=== PATIENT | female | born 1965 | race Caucasian/White ===

== ENCOUNTER 2018-12-11 14:48 | Observation (INO) ==
--- NOTE | 2018-12-11 14:54 | Emergency Department Note ---
Disposition Clinical Impression: Chest pain Qualifiers: Chest pain type: other chest pain Qualified Code(s): R07.89 - Other chest pain Disposition: Admitted As Inpatient Condition: Fair Time of Disposition: 17:02 Chest Pain HPI - General Stated Complaint: Chest Pain Dizzy Time Seen by Provider: 12/11/18 14:54 Source: patient, family Mode of arrival: ambulatory Limitations: no limitations Vital Signs Reviewed: Yes Nursing Notes Reviewed: Yes - History of Present Illness HPI Narrative: 53-year-old female past medical history of hypertension, Arnold-Chiari ma lformation requiring 2 neurosurgical interventions presenting for one day history of sudden onset crushing chest pain midsternal radiating into her right upper extremity right jaw and going into the back. Patient stating that she is having lightheadedness, dizziness and headache along with the pain. Patient also experiencing nausea without vomiting numbness and paresthesias in the extremities. Patient states woke her from sleep in the middle the night, patient said the pain gradually receded but then about noon today increased in severity currently at 10 out of 10 on the pain scale. Pt complaint: chest pain Onset (ago): hour(s) Duration: gradually worsening Pain Location: substernal, left chest Severity: severe Severity scale (1-10): 10 Quality: sharp, other (Squeezing) Pain Radiation: RUE, jaw/teeth Associated symptoms: Reports: nausea, diaphoresis Treatments prior to arrival chest pain: none - Related Data Home Medications Medication Instructions Recorded Confirmed Furosemide [Lasix] 20 mg PO DAILY 10/08/15 12/11/18 Paroxetine [Paxil] 20 mg PO HS 10/08/15 12/11/18 Zolpidem [Ambien] 10 mg PO HS PRN 10/08/15 12/11/18 Budesonide/Formoterol 80/4.5 2 inh IH BID 06/28/18 12/11/18 [Symbicort 80/4.5] Ipratropium/Albuterol Neb [Duoneb] 2.5 mg IH DAILY PRN 06/28/18 12/11/18 Labetalol [Trandate] 100 mg PO BID 06/28/18 12/11/18 Quinapril HCl [Accupril] 20 mg PO DAILY 06/28/18 12/11/18 Thyroid,Pork [[place] Thyroid] 90 mg PO DAILY 06/28/18 12/11/18 Dicyclomine Hcl [Bentyl] 20 mg PO BID PRN 12/11/18 12/11/18 Erenumab-Aooe [Aimovig 120 mg SQ QMONTH 12/11/18 Autoinjector] Gabapentin 600 mg PO TID 12/11/18 12/11/18 Multivitamin [Daily Multiple 1 tab PO DAILY 12/11/18 12/11/18 Vitamin] Onabotulinumtoxina [Botox] Q3M 12/11/18 OxyCODONE/APAP 7.5/325 [Percocet 1 tab PO Q6HR PRN 12/11/18 12/11/18 7.5/325 MG] Promethazine [Phenergan] 25 mg RC TID PRN 12/11/18 12/11/18 Tizanidine HCl 2 mg PO Q8H PRN 12/11/18 12/11/18 carBAMazepine [Carbamazepine ER] 100 mg PO BID 12/11/18 12/11/18 Allergies Allergy/AdvReac Type Severity Reaction Status Date / Time ciprofloxacin [From Cipro] Allergy See Verified 12/11/18 19:17 Comments doxycycline Allergy Rash Verified 12/11/18 19:17 latex Allergy Anaphylaxis Verified 12/11/18 19:17 Penicillins Allergy Anaphylaxis Verified 12/11/18 19:17 sulfamethoxazole Allergy Headache Verified 12/11/18 19:17 [From Bactrim] trimethoprim [From Bactrim] Allergy Headache Verified 12/11/18 19:17 Review of Systems: See history of present illness for further detail. Constitutional: Denies: fever, chills Cardiovascular: Admits chest pain Respiratory: Admits dyspnea Gastrointestinal: Patient admitted to nausea. Denies: abdominal pain, vomiting, diarrhea, constipation, hematemesis, melena, hematochezia Genitourinary: Denies: hematuria Musculoskeletal: Admits back pain, neck pain Neurological: Patient complains of headache, weakness, numbness paresthesias. All systems ED: reviewed and negative except as stated. Review of Systems: As Per HPI Chest Pain PMH - Past Medical History Medical history: Reports: asthma, CVA, diabetes, GERD, hyperlipidemia, hypertension, migraine, other Surgical history: Reports: appendectomy, cholecystectomy, orthopedic, other, other Psychiatric history: Reports: depression MIXER WHIPPED TOPPING history: Reports: no MIXER WHIPPED TOPPING history - Social History Smoking Status: Never smoker Alcohol use: Reports: none Drug use: Reports: none Physical Exam Constitutional: Patient appears to be in distress due to pain. Otherwise [id number], engaged to conversation, speech is fluid, answers questions appropriately Neuro: GCS 15, no overt focal neurological deficits Head: Atraumatic, normocephalic Eyes: Pupils equal, round and reactive to light, no scleral icterus, no conjunctival injection Neck: Trachea midline without deviation. Anterior neck is supple without swelling. *Chest: Symmetric chest wall rise *Heart: Rate is tachycardic, Cardiac rhythm and is regular with S1 and S2 , no S3 or S4 appreciated, no murmurs, gallops, rubs, or clicks. *Lungs: Lungs are clear to auscultation bilaterally, without accessory muscle use or prolonged expiratory phase. No wheezes, rhonchi or stridor appreciated. Abdomen: Abdomen is flat, soft to palpation, normal bowel sounds. No abdominal bruit auscultated. Non-distended, non-rigid, no organomegaly, no ascites appreciated. No pulsatile mass, no tenderness or guarding to palpation in all four quadrants, no rebound Extremities: Normal capillary refill without evidence of pedal edema, joint swelling or erythema. Pulses/motor/sensory intact in all 4 extremities. Psychiatric exam: Patient displays a normal affect and mood for the environment. No overt signs of hallucination. Integumentary: Patient is diaphoretic. Skin is otherwise intact, normal color. No rash, cyanosis, diaphoresis, erythema, or pallor Course Course Narrative: Concern for aortic dissection CTA dissection study CBC, BMP, BNP, troponin, d-dimer EKG/old EKG Nitroglycerin and fentanyl for patient pain. - Reevaluation(s) Reevaluation #1: Patient continues to have pain despite nitroglycerin and fentanyl here to ED We will give patient 0.5 mg Dilaudid IV. Reevaluation #2: Patient notes significant management her symptoms prior to management of Dilaudid We will hold disorder at this time. Vital Signs Temperature 98.4 F 12/11/18 15:01 Pulse Rate 101 12/11/18 15:01 Respiratory Rate 22 12/11/18 15:01 Blood Pressure 161/102 12/11/18 15:01 O2 Sat by Pulse Oximetry 100 05/22/19 15:01 Temperature 98.4 F 12/11/18 15:01 Pulse Rate 98 12/11/18 15:44 Respiratory Rate 20 12/11/18 15:44 Blood Pressure 164/99 12/11/18 15:44 O2 Sat by Pulse Oximetry 96 12/11/18 15:44 Oxygen Delivery Oxygen Delivery Room Air Chest Pain - MDM Narrative Medical decision making narrative: Patient's EKG, laboratory and imaging results negative for acute pathology CT scan shows hilar lymphadenopathy which is new from prior study Lymphadenopathy was discussed at length patient as well as the necessity for close follow-up with primary care Patient be admitted to hospitalist medicine service for further evaluation and management of chest pain Patient verbalizes understanding and agreement with this plan. - Lab Data Lab results reviewed: Yes I reviewed the patient's lab results. Result diagrams: 12/12/18 02:18 12/12/18 02:18 Lab Results 12/11/18 12/11/18 12/11/18 Range/Units 15:16 15:16 15:16 WBC 5.8 (4.3-11.1) K/mcL RBC 4.14 (3.82-4.97) M/mcL Hgb 12.5 (11.5-15.4) g/dL Hct 36.3 (35.3-44.9) % MCV 87.7 (83.0-100.0) fL MCH 30.2 (28.0-33.3) pg MCHC 34.4 (31.6-35.5) g/dL RDW 12.8 (11.5-14.5) % Plt Count 282 (140-400) K/mcL MPV 10.4 (9.4-12.4) fL Immature Gran % 0.2 (0-4) % Seg Neutrophils % 47.5 % Lymphocytes % 38.9 % Monocytes % 11.2 % Eosinophils % 1.9 % Basophils % 0.3 % Neutrophils # 2.8 (1.6-8.9) K/mcL Lymphocytes # 2.3 (0.6-4.6) K/mcL Monocytes # 0.7 (0.0-1.3) K/mcL Eosinophils # 0.1 (0.0-0.6) K/mcL Basophils # 0.0 (0.0-0.2) K/mcL D-Dimer 489 (0-500) ng/mLFEU Sodium 142 (136-145) mEq/L Potassium 4.1 (3.5-5.1) mEq/L Chloride 105 (98-107) mEq/L Carbon Dioxide 25 (23-29) mEq/L BUN 13 (6-20) mg/dL Creatinine 0.67 (0.60-1.20) mg/dL Est GFR ( Amer) > 60 (> 60) Est GFR (Non-Af Amer) > 60 (> 60) BUN/Creatinine Ratio 19 (6-26) Glucose 112 H (70-105) mg/dL Calculated Osmolality 295 (280-300) Calcium 10.1 (8.6-10.3) mg/dL Troponin I < 0.03 (< 0.04) ng/mL - Radiology Data Radiology results reviewed: Yes I reviewed the patient's radiology results. CT Dissection 12/11/18 15:00 IMPRESSION: No evidence of aortic dissection. Mild mediastinal and hilar adenopathy which is new since the most recent available study February 2018. Follow-up is recommended with clinical consultation and/or PET-CT and/or three-month follow-up chest CT. Fatty infiltration of the liver. D/ / Gracie Arias Cha, MD / Gracie Arias Cha, MD Interpreting Provider: Gracie Arias Cha, MD - EKG Data EKG attestation: Yes I reviewed and interpreted this EKG. EKG results narrative: 1. Patient EKG shows sinus tachycardia with a rate of 101 bpm, NV interval of 137 ms, QRS duration of 80 ms, QT/QTc interval of 354/459 ms respectively. There are moderate ST segment elevations less than 1 mm noted in lead 1 and aVL with no reciprocal depressions noted, there are no significant ST segment depressions, pathologic Q waves, abnormal T-wave inversions, or any other signs of acute ischemic change. This EKG is generally consistent with prior EKG performed on 02/20/2018. 2. Repeat EKG shows sinus rhythm with a heart of 94 bpm, NV interval of 140 ms, QR synagogue of a 6 miles seconds, QT/QTc intervals 368/461 ms respectively. There are still minor less than [address] segment elevations in lead aVL and lead 1 which are isolated to the leads without significant ST segment reciprocal depressions. There are no pathologic Q waves, no abnormal T-wave inversions, or any other signs of acute ischemic change. EKG remains consistent with priors. Heart Score - Score History: Slightly Suspicious EKG: Normal Age: 45-65 Risk Factors: No risk factors known Troponin: Less than normal limit HEART Score Total: 1
[2018-12-11] MEDS ORDERED: Isovue-370 500 ML BOTTLE IVP ONE (15:00)
[2018-12-11] MEDS ORDERED: 0.9 % Sodium Chloride 1,000 ML IVC ONE (15:01)
[2018-12-11] MEDS ORDERED: *HR* FentaNYL (PF) 100 MCG/2 ML VIAL IVP STA (15:02)
[2018-12-11] MEDS: Nitroglycerin 0.4 MG TAB.SUBL SL SCH ×3 (15:28→15:50)
[2018-12-11 15:52] LABS: Basophils % 0.3 %; Eosinophils # 0.1 K/mcL (0.0-0.6); Eosinophils % 1.9 %; Hematocrit 36.3 % (35.3-44.9); Hemoglobin 12.5 g/dL (11.5-15.4); Immature Granulocytes % 0.2 % (0-4); Lymphocytes # 2.3 K/mcL (0.6-4.6); Lymphocytes % 38.9 %; Mean Corpuscular HGB Conc 34.4 g/dL (31.6-35.5); Mean Corpuscular Hemoglobin 30.2 pg (28.0-33.3); Mean Corpuscular Volume 87.7 fL (83.0-100.0); Mean Platelet Volume 10.4 fL (9.4-12.4); Monocytes # 0.7 K/mcL (0.0-1.3); Monocytes % 11.2 %; Neutrophils # 2.8 K/mcL (1.6-8.9); Platelet Count 282 K/mcL (140-400); Red Blood Count 4.14 M/mcL (3.82-4.97); Red Cell Distribution Width 12.8 % (11.5-14.5); Segmented Neutrophils % 47.5 %
--- NOTE | 2018-12-11 15:53 | Emergency Department Note ---
Disposition Clinical Impression: Chest pain Qualifiers: Chest pain type: other chest pain Qualified Code(s): R07.89 - Other chest pain Disposition: Admitted As Inpatient Condition: Fair Instructions: Chest Pain (ED) Referrals: NONE,PCP [Primary Care Provider] - Forms: ED Satisfaction Letter Time of Disposition: 17:04 General Adult HPI - General Chief complaint: ED Chest Pain Stated complaint: Chest Pain Dizzy Time Seen by Provider: 12/11/18 14:54 Source: patient, family Mode of arrival: ambulatory Limitations: no limitations - History of Present Illness Pain Scale: 10 - Related Data Home Medications Medication Instructions Recorded Confirmed Furosemide [Lasix] 20 mg PO DAILY 10/08/15 06/28/18 Gabapentin [Neurontin] 600 mg PO TID 10/08/15 06/28/18 HYDROmorphone [Dilaudid] 4 mg PO Q6HR 10/08/15 06/28/18 Multivitamin [Multi-Day Vitamins] 1 tab PO DAILY 10/08/15 06/28/18 Oxycodone HCl/Acetaminophen 7.5 - 325 tab PO Q4-6H PRN 10/08/15 06/28/18 [Percocet 7.5-325 mg Tablet] Paroxetine [Paxil] 20 mg PO DAILY 10/08/15 06/28/18 Promethazine [Phenergan] 25 mg TID PRN 10/08/15 06/28/18 Tizanidine HCl [Zanaflex] 2 mg PO Q8-10H PRN 10/08/15 06/28/18 Zolpidem [Ambien] 10 mg PO HS 10/08/15 06/28/18 Budesonide/Formoterol 80/4.5 2 inh IH BID 06/28/18 06/28/18 [Symbicort 80/4.5] CarBAMazepine [Equetro] 100 mg PO BID 06/28/18 06/28/18 Dicyclomine [Bentyl] 20 mg IM Q6HR 06/28/18 06/28/18 Ipratropium/Albuterol Neb [Duoneb] 2.5 mg IH DAILY PRN 06/28/18 06/28/18 Labetalol [Trandate] 100 mg PO BID 06/28/18 06/28/18 Quinapril HCl [Accupril] 20 mg PO DAILY 06/28/18 06/28/18 Thyroid,Pork [[place] Thyroid] 90 mg PO DAILY 06/28/18 06/28/18 Tizanidine HCl [Zanaflex] 2 mg PO Q8HR PRN 06/28/18 06/28/18 Allergies Allergy/AdvReac Type Severity Reaction Status Date / Time ciprofloxacin [From Cipro] Allergy See Verified 06/20/18 10:01 Comments doxycycline Allergy Rash Verified 06/20/18 10:01 latex Allergy Anaphylaxis Verified 06/20/18 10:01 Penicillins Allergy Anaphylaxis Verified 06/20/18 10:01 sulfamethoxazole Allergy Headache Verified 06/20/18 10:01 [From Bactrim] trimethoprim [From Bactrim] Allergy Headache Verified 06/20/18 10:01 Past Medical History - Past Medical History Medical history: Reports: asthma, CVA, diabetes, GERD, hyperlipidemia, hypertension, migraine, other Surgical history: Reports: appendectomy, cholecystectomy, orthopedic, other, other Psychiatric history: Reports: depression FAMILY LAW PARALEGAL history: Reports: no FAMILY LAW PARALEGAL history - Social History Smoking Status: Never smoker Smokeless Tobacco Status: No Alcohol use: Reports: none Drug use: Reports: none Physical Exam - General Limitations: no limitations General appearance: alert, in distress Course Vital Signs Temperature 98.4 F 12/11/18 15:01 Pulse Rate 101 12/11/18 15:01 Respiratory Rate 22 12/11/18 15:01 Blood Pressure 161/102 12/11/18 15:01 O2 Sat by Pulse Oximetry 100 12/11/18 15:01 Temperature 98.4 F 12/11/18 15:01 Pulse Rate 98 12/11/18 15:44 Respiratory Rate 20 12/11/18 15:44 Blood Pressure 164/99 12/11/18 15:44 O2 Sat by Pulse Oximetry 96 12/11/18 15:44 Oxygen Delivery Oxygen Delivery Room Air Medical Decision Making - Lab Data Result diagrams: 12/11/18 15:16 12/11/18 15:16 Lab Results 12/11/18 12/11/18 12/11/18 Range/Units 15:16 15:16 15:16 WBC 5.8 (4.3-11.1) K/mcL RBC 4.14 (3.82-4.97) M/mcL Hgb 12.5 (11.5-15.4) g/dL Hct 36.3 (35.3-44.9) % MCV 87.7 (83.0-100.0) fL MCH 30.2 (28.0-33.3) pg MCHC 34.4 (31.6-35.5) g/dL RDW 12.8 (11.5-14.5) % Plt Count 282 (140-400) K/mcL MPV 10.4 (9.4-12.4) fL Immature Gran % 0.2 (0-4) % Seg Neutrophils % 47.5 % Lymphocytes % 38.9 % Monocytes % 11.2 % Eosinophils % 1.9 % Basophils % 0.3 % Neutrophils # 2.8 (1.6-8.9) K/mcL Lymphocytes # 2.3 (0.6-4.6) K/mcL Monocytes # 0.7 (0.0-1.3) K/mcL Eosinophils # 0.1 (0.0-0.6) K/mcL Basophils # 0.0 (0.0-0.2) K/mcL D-Dimer 489 (0-500) ng/mLFEU Sodium 142 (136-145) mEq/L Potassium 4.1 (3.5-5.1) mEq/L Chloride 105 (98-107) mEq/L Carbon Dioxide 25 (23-29) mEq/L BUN 13 (6-20) mg/dL Creatinine 0.67 (0.60-1.20) mg/dL Est GFR ( Amer) > 60 (> 60) Est GFR (Non-Af Amer) > 60 (> 60) BUN/Creatinine Ratio 19 (6-26) Glucose 112 H (70-105) mg/dL Calculated Osmolality 295 (280-300) Calcium 10.1 (8.6-10.3) mg/dL Troponin I < 0.03 (< 0.04) ng/mL Critical Care Time Critical Care Time: No Attestation Statement - Attestation Attestation: I examined this patient and my medical decision-making was reviewed with the Resident Physician. I agree with the documented findings, disposition and treatment plan as described except to the extent set forth below. Patient presents to the ED with a chief complaint of chest pain. Onset this morning when I woke her up from sleep. Radiating to the right shoulder and her back. No cardiac history. On examination she is laying in bed clutching her chest. Appears uncomfortable. Plan. Cardiac workup. Dissection study. 2 E KGs been performed at this time and are unchanged. No signs of ischemia. CT was called and nursing staff is taking her at this time. CT scan is negative for dissection. Patient is admitted to the hospitalist for further chronic workup. We will discuss the adenopathy with the patient. CT Dissection 12/11/18 15:00 IMPRESSION: No evidence of aortic dissection. Mild mediastinal and hilar adenopathy which is new since the most recent available study February 2018. Follow-up is recommended with clinical consultation and/or PET-CT and/or three-month follow-up chest CT. Fatty infiltration of the liver. D/ / Gracie Arias Cha, MD / Gracie Arias Cha, MD Interpreting Provider: Gracie Arias Cha, MD
[2018-12-11 16:09] LABS: BUN/Creatinine Ratio 19 (6-26); Blood Urea Nitrogen 13 mg/dL (6-20); Calcium 10.1 mg/dL (8.6-10.3); Carbon Dioxide 25 mEq/L (23-29); Chloride 105 mEq/L (98-107); Glucose 112 mg/dL (70-105); Osmolality,Calculated 295 (280-300); Potassium 4.1 mEq/L (3.5-5.1); Sodium 142 mEq/L (136-145); eGFR For Non-African Americans > 60 (> 60)
[2018-12-11 16:10] LABS: Troponin I < 0.03 ng/mL (< 0.04)
[2018-12-11] MEDS ORDERED: *HR* HYDROmorphone (PF) 1 MG/ML SYRINGE IVP ONE (16:31)
[2018-12-11] MEDS ORDERED: Ondansetron 4 MG/2 ML VIAL IVP PRN (18:36)
[2018-12-11] MEDS ORDERED: Naloxone 0.4 MG/ML INJ IVP PRN (18:36)
[2018-12-11] MEDS ORDERED: Nitroglycerin 0.4 MG TAB.SUBL SL PRN (18:49)
--- NOTE | 2018-12-11 18:52 | Internal Med History&Physical ---
Date of Encounter: 12/11/18 Time of Encounter: 18:50 Internal Medicine - H&P: HPI Chief complaint: cp Admitted From: Home Plans for Post Hospital Care: Home History of present illness: Ms. Lehman is a 53 year old female past medical history of past medical history of asthma diet-controlled diabetes. Hyperlipidemia hypertension Arnold Chiari malformation with surgical intervention 2 chronic migraines incomplete emptying of bladder self-catheterization. According to the patient she was awakened approximately 3 to 4:00 this morning with sharp tight chest pressure radiating to her right neck and jaw there were no aggravating or relieving factors she did experience some shortness of breath and nausea. She felt as if her heart was pounding The pain did ease and a few hours later returned again at that time she did go to the ER for evaluation. In the ER lab work was unremarkable EKG with no significant ST changes CT dissection of chest was negative she was given nitroglycerin as well as a GI cocktail. GI cocktail did not relieve some of her pain. However now she has a headache. She was admitted for further work up and evaluation. Currently denies any chest pain but does complain of a headache. She is hemodynamically stable at this time however she is somewhat hypertensive. Discussed treatment plan with the patient verbalized understanding. Past Med Surg Social Fam HX - Past Medical History Medical history: asthma, CVA, diabetes, GERD, hyperlipidemia, hypertension, migraine, other Additional medical history: bronchitis,hypothyroid,urinary incontinence,diverticulosis,gallbladder disease,polyps in colon,ulcerative colitis,depression,hypoxemia,arnold-chairi malformation,visual field loss,gynecomastia female,impaired fasting glucose,obstructive sleep apnea,fungal infection, Psychiatric history: depression - Past Surgical History Surgical History: appendectomy, cholecystectomy, orthopedic, other, other Additional surgical history: brain surgery,tonsils,left knee,right knee,reflux surgery,right shoulder,heel spurs,spinal tap,breast reduction,colonoscopy,left knee scope-repair - Social History Smoking Status: Never smoker Smokeless Tobacco Status: No Alcohol use: none Drug use: none - Family History Father Living Status: Still Living Hx Family Cardiac Disorders: Yes (Coronary disease) Mother Living Status: Still Living Hx Family Cardiac Disorders: Yes (Hypertension) Internal Medicine - H&P: Meds Furosemide [Lasix] 20 mg PO DAILY 10/08/15 [History] Gabapentin [Neurontin] 600 mg PO TID 10/08/15 [History] HYDROmorphone [Dilaudid] 4 mg PO Q6HR 10/08/15 [History] Multivitamin [Multi-Day Vitamins] 1 tab PO DAILY 10/08/15 [History] Oxycodone HCl/Acetaminophen [Percocet 7.5-325 mg Tablet] 7.5 - 325 tab PO Q4-6H PRN 10/08/15 [History] Paroxetine [Paxil] 20 mg PO DAILY 10/08/15 [History] Promethazine [Phenergan] 25 mg TID PRN 10/08/15 [History] Tizanidine HCl [Zanaflex] 2 mg PO Q8-10H PRN 10/08/15 [History] Zolpidem [Ambien] 10 mg PO HS 10/08/15 [History] Budesonide/Formoterol 80/4.5 [Symbicort 80/4.5] 2 inh IH BID 06/28/18 [History] CarBAMazepine [Equetro] 100 mg PO BID 06/28/18 [History] Dicyclomine [Bentyl] 20 mg IM Q6HR 06/28/18 [History] Ipratropium/Albuterol Neb [Duoneb] 2.5 mg IH DAILY PRN 06/28/18 [History] Labetalol [Trandate] 100 mg PO BID 06/28/18 [History] Quinapril HCl [Accupril] 20 mg PO DAILY 06/28/18 [History] Thyroid,Pork [Doole Thyroid] 90 mg PO DAILY 06/28/18 [History] Tizanidine HCl [Zanaflex] 2 mg PO Q8HR PRN 06/28/18 [History] Allergy/AdvReac Type Severity Reaction Status Date / Time ciprofloxacin [From Cipro] Allergy See Verified 12/11/18 19:17 Comments doxycycline Allergy Rash Verified 12/11/18 19:17 latex Allergy Anaphylaxis Verified 12/11/18 19:17 Penicillins Allergy Anaphylaxis Verified 12/11/18 19:17 sulfamethoxazole Allergy Headache Verified 12/11/18 19:17 [From Bactrim] trimethoprim [From Bactrim] Allergy Headache Verified 12/11/18 19:17 All Systems PM: A 10-system review of systems was performed and is negative for pertinent findings except as documented above in the HPI. - Constitutional Constitutional: no chills, no fever(s), no night sweats - EENT Eyes: no change in vision, no discharge, no pain, no photophobia Ears: no ear discharge, no ear pain, no tinnitus Nose, mouth and throat: no dysphagia, no nasal discharge, no neck pain, no sore throat - Cardiovascular Cardiovascular ROS IM: palpitations, no chest pain, no diaphoresis, no dyspnea, no lightheadedness, no syncope - Respiratory Respiratory: chest congestion, no dyspnea, no wheezing, no excessive phlegm production - Gastrointestinal Gastrointestinal: no abdominal pain, no diarrhea, no hematemesis, no hematochezia, no melena, no nausea, no vomiting - Genitourinary Genitourinary: no change in urinary stream, no dysuria, no flank pain, no hematuria - Musculoskeletal Musculoskeletal ROS IM: no numbness, no tingling - Integumentary Integumentary IM: no rash, no unusual bruising - Neurological Neurological ROS: no confusion, no convulsions, no focal weakness, no numbness, no tingling, no tremor(s) - Hematologic/Lymphatic Hematologic/Lymphatic: no easy bruising - Constitutional Vitals: Temp Pulse Resp BP Pulse Ox 98.4 F 95 14 168/112 99 12/11/18 15:01 12/11/18 18:07 12/11/18 18:07 12/11/18 18:07 12/11/18 18:07 General appearance: Present: A&O X 3 Exam: . - Head Head exam: Present: atraumatic, normocephalic - Eye Eye exam: Present: PERRL, conjuntiva pink, sclera anicteric Pupils: Present: PERRL - Neck Neck exam general surgery: Present: supple, trachea midline. Absent: lymphadenopathy - Respiratory Respiratory exam: Present: CTAB. Absent: accessory muscle use, rales, rhonchi, wheezes - Cardiovascular Cardiovascular exam: Present: RRR, +S1, +S2. Absent: diastolic murmur, gallop, rubs, systolic murmur - GI/Abdominal GI/Abdominal exam: Present: normal bowel sounds, soft, no peritoneal signs. Absent: distended, tenderness - Extremities Exam Extremities exam: Present: warm, radial pulses palpable and symmetrical. Abs ent: calf tenderness, cyanotic, pedal edema - Neurological Exam Neurological exam: Present: CN II-XII intact, oriented X3, no focal deficits. Absent: pronater drift, facial droop, speech deficit - Skin Skin exam: Present: dry, intact Internal Med - H&P Results - Labs CBC & Chem 7: 12/11/18 15:16 12/11/18 15:16 Labs: Short CBC 12/11/18 Range/Units 15:16 WBC 5.8 (4.3-11.1) K/mcL Hgb 12.5 (11.5-15.4) g/dL Hct 36.3 (35.3-44.9) % Plt Count 282 (140-400) K/mcL Neutrophils # 2.8 (1.6-8.9) K/mcL BMP 12/11/18 15:16 Sodium 142 Potassium 4.1 Chloride 105 Carbon Dioxide 25 BUN 13 Creatinine 0.67 Glucose 112 H Calcium 10.1 Cardiac Enzymes 12/11/18 Range/Units 15:16 Troponin I < 0.03 (< 0.04) ng/mL - Impressions ITS Impressions CT Dissection 12/11/18 15:00 IMPRESSION: No evidence of aortic dissection. Mild mediastinal and hilar adenopathy which is new since the most recent available study February 2018. Follow-up is recommended with clinical consultation and/or PET-CT and/or three-month follow-up chest CT. Fatty infiltration of the liver. D/ / Gracie Arias Cha, MD / Gracie Arias Cha, MD Interpreting Provider: Gracie Arias Cha, MD - Assessment and Plan (1) Chest pain Current Visit: Yes Status: Acute Assessment and plan: Patient presented with sudden onset of chest pain initial troponins are negative we will continue to trend troponins Cardiac echo Continuous cardiac monitoring Lipid profile Atorvastatin aspirin and beta elba lisinopril Nitroglycerin as needed for chest pain Cardiac stress test in a.m. if workup is negative Nothing by mouth after midnight for possible cardiac stress test Consult cardiology if needed Qualifiers: Chest pain type: other chest pain Qualified Code(s): R07.89 - Other chest pain; R07.8 - Other chest pain (2) DVT prophylaxis Current Visit: Yes Status: Acute Assessment and plan: Lovenox subcutaneous (3) Arnold-chiari syndrome with hydrocephalus Current Visit: No Status: Chronic Assessment and plan: Stable at this time follow-up as outpatient with neurology (4) Hyperlipemia Current Visit: No Status: Chronic Assessment and plan: Lipid profile in a.m. atorvastatin Qualifiers: Hyperlipidemia type: unspecified Qualified Code(s): E78.5 - Hyperlipidemia, unspecified (5) Hypertension Current Visit: Yes Status: Acute Assessment and plan: Patient has had elevated blood pressure states she has been taking her medication as prescribed. We will place on metoprolol as well as lisinopril hydralazine as needed for systolic greater than 180. Will resume home medications once clarified. Qualifiers: Hypertension type: essential hypertension Qualified Code(s): I10 - Essential (primary) hypertension - Time Spent With Patient Total time spent is greater than 50% in coordination of care (as documented) at patient's floor/unit and/or counseling patient:
[2018-12-12] MEDS: *HR* OxyCODONE/APAP 7.5/325 TABLET PO PRN ×3 (00:21→22:47)
[2018-12-12 02:38] LABS: Basophils % 0.3 %; Eosinophils # 0.2 K/mcL (0.0-0.6); Eosinophils % 3.3 %; Hematocrit 33.8 % (35.3-44.9); Hemoglobin 11.4 g/dL (11.5-15.4); Immature Granulocytes % 0.2 % (0-4); Lymphocytes # 2.9 K/mcL (0.6-4.6); Lymphocytes % 43.1 %; Mean Corpuscular HGB Conc 33.7 g/dL (31.6-35.5); Mean Corpuscular Hemoglobin 30.5 pg (28.0-33.3); Mean Corpuscular Volume 90.4 fL (83.0-100.0); Mean Platelet Volume 10.2 fL (9.4-12.4); Monocytes # 0.7 K/mcL (0.0-1.3); Monocytes % 9.8 %; Neutrophils # 2.9 K/mcL (1.6-8.9); Platelet Count 243 K/mcL (140-400); Red Blood Count 3.74 M/mcL (3.82-4.97); Red Cell Distribution Width 13.1 % (11.5-14.5); Segmented Neutrophils % 43.3 %
[2018-12-12 02:40] LABS: Estimated Average Glucose 134 mg/dl; Hemoglobin A1C 6.3 %
[2018-12-12 02:58] LABS: BUN/Creatinine Ratio 21 (6-26); Blood Urea Nitrogen 13 mg/dL (6-20); Calcium 9.2 mg/dL (8.6-10.3); Carbon Dioxide 25 mEq/L (23-29); Chloride 106 mEq/L (98-107); Chol/HDL Ratio 5.4 (0-4.9); Cholesterol 188 mg/dL (< 200); Glucose 121 mg/dL (70-105); HDL Cholesterol 35 mg/dL (40-59); LDL Cholesterol,Calculated 103 mg/dL (0-99); Magnesium 1.8 mg/dL (1.6-2.6); Osmolality,Calculated 287 (280-300); Sodium 138 mEq/L (136-145); Triglycerides 250 mg/dL (< 150); eGFR For Non-African Americans > 60 (> 60)
[2018-12-12] MEDS ORDERED: Metoclopramide 10 MG/2 ML VIAL IVP STA (04:55)
[2018-12-12] MEDS: *HR* Enoxaparin 40 MG/0.4 ML SYRINGE SQ SCH (05:26)
[2018-12-12] MEDS ORDERED: Regadenoson 0.4 MG/5 ML SYRINGE IVP ONE (06:20)
[2018-12-12] MEDS: Aspirin 81 MG TAB.CHEW PO SCH (08:44)
--- NOTE | 2018-12-12 09:47 | Electrocardiograph Report ---
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
[2018-12-12] MEDS ORDERED: Perflutren Lipid Microsphere 1.3 ML in 0.9 % Sodium Chloride 8.7 ML IVP ONE (10:34)
[2018-12-12] MEDS ORDERED: tiZANidine 4 MG TABLET PO PRN (15:54)
--- NOTE | 2018-12-12 15:54 | Internal Med Progress Note ---
Hospitalist Progress Note - Encounter Date of Encounter: 12/12/18 Time of Encounter: 15:51 - Subjective Interval History: Patient was seen and examined at bedside currently completed second-half of 2 day stress test. Denies any chest pain or discomfort at this time - Exam Vitals: Temp Pulse Resp BP Pulse Ox 98.4 F 82 16 172/113 98 12/12/18 15:45 12/12/18 15:45 12/12/18 15:45 12/12/18 15:45 12/12/18 15:45 Exam: Skin: Free of rash and discoloration. Eyes: Sclera is white. There is no discharge from eyes. ENMT: Oral/pharyngeal mucosa is normal in appearance. There is no discharge from nose or ears. Respiratory: Normal breath sounds with no crackles and wheezes bilaterally. CV: Heart is regular with no gallop or murmur. GI: Abdomen is flat and soft with no palpable mass or visceromegaly. : There is no tenderness in patient's flanks bilaterally. Neuro exam: He has good strength in upper and lower extremities. He has normal eye movements. Psychiatric: He has normal affect. His thought process is appropriate to the situation. - Assessment and Plan (1) Chest pain Current Visit: Yes Status: Acute Assessment and Plan: Patient presented with sudden onset of chest pain initial troponins are negative Completed first day of 2 day stress test- Continuous cardiac monitoring Lipid profile Atorvastatin aspirin and beta elba lisinopril Nitroglycerin as needed for chest pain Nothing by mouth after midnight for possible cardiac stress test Consult cardiology if needed Cardiac echo Impressions: LVEF 65%. Normal LV chamber size. Mild concentric left ventricular hypertrophy. Mild left ventricular diastolic dysfunction. The right ventricle was not well visualized but appeared grossly normal in size and function Unable to estimate RVSP due to lack of TR jet. No significant valvular dysfunction. (2) DVT prophylaxis Current Visit: Yes Status: Acute Assessment and Plan: Lovenox subcutaneous (3) Arnold-chiari syndrome with hydrocephalus Current Visit: No Status: Chronic Assessment and Plan: Stable at this time follow-up as outpatient with neurology (4) Hyperlipemia Current Visit: No Status: Chronic Assessment and Plan: Lipid profile in a.m. atorvastatin (5) Hypertension Current Visit: Yes Status: Acute Assessment and Plan: Patient has had elevated blood pressure states she has been taking her medicat ion as prescribed. We will place on metoprolol as well as lisinopril hydralazine as needed for systolic greater than 180. Will resume home medications once clarified. - Time Spent with Patient Total time spent is greater than 50% in coordination of care (as documented) at patient's floor/unit and/or counseling patient: Internal Medicine: Result - Labs CBC & Chem 7: 12/12/18 02:18 12/12/18 02:18 Labs: Short CBC 12/11/18 12/12/18 Range/Units 15:16 02:18 WBC 5.8 6.6 (4.3-11.1) K/mcL Hgb 12.5 11.4 L (11.5-15.4) g/dL Hct 36.3 33.8 L (35.3-44.9) % Plt Count 282 243 (140-400) K/mcL Neutrophils # 2.8 2.9 (1.6-8.9) K/mcL BMP 12/11/18 12/12/18 15:16 02:18 Sodium 142 138 Potassium 4.1 4.0 Chloride 105 106 Carbon Dioxide 25 25 BUN 13 13 Creatinine 0.67 0.62 Glucose 112 H 121 H Calcium 10.1 9.2 Cardiac Enzymes 12/11/18 12/11/18 12/12/18 Range/Units 15:16 20:30 02:18 Troponin I < 0.03 < 0.03 < 0.03 (< 0.04) ng/mL - ABG Interpretation ABG results: PT/INR, D-dimer 489 ng/mLFEU (0-500) 12/11/18 15:16 - Impressions Impressions CT Dissection 12/11/18 15:00 IMPRESSION: No evidence of aortic dissection. Mild mediastinal and hilar adenopathy which is new since the most recent available study February 2018. Follow-up is recommended with clinical consultation and/or PET-CT and/or three-month follow-up chest CT. Fatty infiltration of the liver. D/ / Gracie Arias Cha, MD / Gracie Arias Cha, MD Interpreting Provider: Gracie Arias Cha, MD Echocardiogram 12/12/18 18:39 Impressions: LVEF 65%. Normal LV chamber size. Mild concentric left ventricular hypertrophy. Mild left ventricular diastolic dysfunction. The right ventricle was not well visualized but appeared grossly normal in size and function Unable to estimate RVSP due to lack of TR jet. No significant valvular dysfunction. Left Ventricular Wall Motion: Rest Echo Findings All wall segments showed normal motion. Findings: Study Quality * Technically sub-optimal due to poor echocardiographic windows. ECG Findings * Normal sinus rhythm. Left Ventricle * LVEF 65%. * Normal LV chamber size. * Mild concentric left ventricular hypertrophy. * Mild left ventricular diastolic dysfunction. Right Ventricle * The right ventricle was not well visualized but appeared grossly normal in size and function Left Atrium * Normal left atrial size. Right Atrium * Normal right atrial size. Interatrial Septum * Interatrial septum not well evaluated. Aortic Valve * Aortic valve not well visualized. * No aortic regurgitation. * No aortic stenosis. Mitral Valve * Mild mitral annular calcification * Trace mitral regurgitation. * No mitral stenosis. Tricuspid Valve * Trace tricuspid regurgitation. * No tricuspid stenosis. * Normal tricuspid valve structure. * Unable to estimate RVSP due to lack of TR jet. Pulmonic Valve * Pulmonic valve not well visualized. Aorta * Normally sized aortic root. Pericardium * The pericardium appears normal. IVC * Normal IVC dimensions and inspiratory collapse. Pulmonary Artery * Pulmonary artery not well visualized. Consult Discharge Plan - Plan Referrals: Hipolito Zapien MD [Partnered Physician] - (Appointment has been requested.) (1) Chest pain Qualifiers: Chest pain type: other chest pain Qualified Code(s): R07.89 - Other chest pain; R07.8 - Other chest pain (4) Hyperlipemia Qualifiers: Hyperlipidemia type: unspecified Qualified Code(s): E78.5 - Hyperlipidemia, unspecified (5) Hypertension Qualifiers: Hypertension type: essential hypertension Qualified Code(s): I10 - Essential (primary) hypertension
[2018-12-12] MEDS: Lisinopril 20 MG TABLET PO SCH (16:46)
[2018-12-12] MEDS: Furosemide 20 MG TABLET PO SCH (16:46)
[2018-12-12] MEDS: Gabapentin 300 MG CAPSULE PO SCH (20:07)
[2018-12-12] MEDS: CarBAMazepine XR (12 hr) 100 MG TAB PO SCH (20:08)
[2018-12-12] MEDS: Budesonide/Formoterol 80/4.5 MDI IH SCH (20:13)
[2018-12-12] MEDS ORDERED: Loratadine 10 MG TABLET PO ONE (20:17)
[2018-12-13] MEDS: *HR* OxyCODONE/APAP 7.5/325 TABLET PO PRN ×2 (05:25→12:09)
[2018-12-13] MEDS: *HR* Enoxaparin 40 MG/0.4 ML SYRINGE SQ SCH (06:02)
[2018-12-13] MEDS: Budesonide/Formoterol 80/4.5 MDI IH SCH (07:44)
[2018-12-13] MEDS ORDERED: NON-FORMULARY MEDICATION 1 EACH EACH (Quinapril Hcl [Accupril] 20 MG) PO SCH (09:00)
[2018-12-13] MEDS ORDERED: Multivit/Ca/Min/Fe/FA 1 TAB TABLET PO SCH (09:00)
[2018-12-13] MEDS ORDERED: Furosemide 20 MG TABLET PO SCH (09:00)
--- NOTE | 2018-12-13 10:25 | Internal Med Progress Note ---
Hospitalist Progress Note - Encounter Date of Encounter: 12/13/18 Time of Encounter: 10:02 - Subjective Interval History: Patient was seen and examined at bedside Updated patient on - Exam Vitals: Temp Pulse Resp BP Pulse Ox 98.2 F 87 16 128/81 92 12/13/18 07:12 12/13/18 07:12 12/13/18 07:45 12/13/18 07:12 12/13/18 07:45 - Assessment and Plan (1) Chest pain Current Visit: Yes Status: Acute (2) DVT prophylaxis Current Visit: Yes Status: Acute (3) Arnold-chiari syndrome with hydrocephalus Current Visit: No Status: Chronic (4) Hyperlipemia Current Visit: No Status: Chronic (5) Hypertension Current Visit: Yes Status: Acute - Time Spent with Patient Total time spent is greater than 50% in coordination of care (as documented) at patient's floor/unit and/or counseling patient: Internal Medicine: Result - Labs CBC & Chem 7: 12/12/18 02:18 12/12/18 02:18 - ABG Interpretation ABG results: PT/INR, D-dimer 489 ng/mLFEU (0-500) 12/11/18 15:16 - Impressions Impressions Echocardiogram 12/12/18 18:39 Impressions: LVEF 65%. Normal LV chamber size. Mild concentric left ventricular hypertrophy. Mild left ventricular diastolic dysfunction. The right ventricle was not well visualized but appeared grossly normal in size and function Unable to estimate RVSP due to lack of TR jet. No significant valvular dysfunction. Left Ventricular Wall Motion: Rest Echo Findings All wall segments showed normal motion. Findings: Study Quality * Technically sub-optimal due to poor echocardiographic windows. ECG Findings * Normal sinus rhythm. Left Ventricle * LVEF 65%. * Normal LV chamber size. * Mild concentric left ventricular hypertrophy. * Mild left ventricular diastolic dysfunction. Right Ventricle * The right ventricle was not well visualized but appeared grossly normal in size and function Left Atrium * Normal left atrial size. Right Atrium * Normal right atrial size. Interatrial Septum * Interatrial septum not well evaluated. Aortic Valve * Aortic valve not well visualized. * No aortic regurgitation. * No aortic stenosis. Mitral Valve * Mild mitral annular calcification * Trace mitral regurgitation. * No mitral stenosis. Tricuspid Valve * Trace tricuspid regurgitation. * No tricuspid stenosis. * Normal tricuspid valve structure. * Unable to estimate RVSP due to lack of TR jet. Pulmonic Valve * Pulmonic valve not well visualized. Aorta * Normally sized aortic root. Pericardium * The pericardium appears normal. IVC * Normal IVC dimensions and inspiratory collapse. Pulmonary Artery * Pulmonary artery not well visualized. Consult Discharge Plan - Plan Referrals: Hipolito Zapien MD [Partnered Physician] - (Appointment has been requested.) (1) Chest pain Qualifiers: Chest pain type: other chest pain Qualified Code(s): R07.89 - Other chest pain; R07.8 - Other chest pain (4) Hyperlipemia Qualifiers: Hyperlipidemia type: unspecified Qualified Code(s): E78.5 - Hyperlipidemia, unspecified (5) Hypertension Qualifiers: Hypertension type: essential hypertension Qualified Code(s): I10 - Essential (primary) hypertension
--- NOTE | 2018-12-13 10:51 | Electrocardiograph Report ---
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
[2018-12-13] MEDS: Gabapentin 300 MG CAPSULE PO SCH ×2 (10:53→16:29)
[2018-12-13] MEDS: Lisinopril 20 MG TABLET PO SCH (10:53)
[2018-12-13] MEDS: Furosemide 20 MG TABLET PO SCH (10:53)
[2018-12-13] MEDS: Aspirin 81 MG TAB.CHEW PO SCH (10:53)
[2018-12-13] MEDS: CarBAMazepine XR (12 hr) 100 MG TAB PO SCH (10:54)
--- NOTE | 2018-12-13 14:29 | Cardiology Consult Note ---
<Judy Bartholomew Aston - Last Filed: 12/13/18 14:30> Date of Encounter: 12/13/18 Time of Encounter: 14:00 Assessment and Plan (1) Chest pain Current Visit: Yes Status: Acute Atypical chest pain symptoms, troponin negative. ECG without ischemic changes. Cardiology consulted for abnormal stress test--mild anterolateral perfusion defect. Reviewed images with Dr. Fernandez; may be secondary to breast attenuation. Recommend medical therapy for now as symptoms seem to correlate with uncontrolled blood pressures. Add aspirin, statin, and BB. Follow-up in the outpatient setting in 4-6 weeks with [facility], if continues to have symptoms may need to consider LHC. Qualifiers: Chest pain type: precordial pain Qualified Code(s): R07.2 - Precordial pain (2) Essential hypertension Current Visit: Yes Status: Acute Suspect poorly controlled in the outpatient setting. Add BB. Discussion w patient/family: The assessment and plan as outlined above was discussed with the patient and/or family members who expressed understanding and agreement. All questions were answered. Thank you for involving us in the care of your patient. Please call with any questions. History of Present Illness Consult date: 12/13/18 Requesting physician: Arelis Deleon Consult reason: Abnormal stress test Chief complaint: chest pain History of present illness: Ms. Lehman is a 53 year old female with PMHx significant of HTN, HLD, and obesity who presented to the ED with complaints of sudden onset of chest pain that occurred at rest. Chest pain described as stabbing/squeezing pain that radiated to back and into neck, states pain lasted for several hours and re solved after administration of NTG tabs in the ED. During episode, patient reports SBP >190 during episode. Troponin negative, ECG without ischemic changes. Cardiology consulted today for abnormal stress test. Past Med Surg Social Fam HX - Past Medical History Attestation: Yes The following information was validated with the patient. Source: patient Medical history: asthma, diabetes, GERD, hyperlipidemia, hypertension, migraine, thyroid disease, other Additional medical history: diverticululosis, ulcerative colitis, arnold-chairi malformation, obstructive sleep apnea Psychiatric history: depression - Past Surgical History Surgical History: appendectomy, cholecystectomy, orthopedic, other Additional surgical history: brain surgery x2 ,tonsils removed, reflux surgery, breast reduction - Social History Smoking Status: Never smoker Smokeless Tobacco Status: No Alcohol use: none Drug use: none - Family History Father Living Status: Still Living Hx Family Cardiac Disorders: Yes (unsure of diagnosis) Mother Living Status: Still Living Hx Family Cardiac Disorders: Yes (Hypertension) Medications and Allergies Furosemide [Lasix] 20 mg PO DAILY 10/08/15 [History] Paroxetine [Paxil] 20 mg PO HS 10/08/15 [History] Zolpidem [Ambien] 10 mg PO HS PRN 10/08/15 [History] Budesonide/Formoterol 80/4.5 [Symbicort 80/4.5] 2 inh IH BID 06/28/18 [History] Ipratropium/Albuterol Neb [Duoneb] 2.5 mg IH DAILY PRN 06/28/18 [History] Labetalol [Trandate] 100 mg PO BID 06/28/18 [History] Quinapril HCl [Accupril] 20 mg PO DAILY 06/28/18 [History] Thyroid,Pork [[place] Thyroid] 90 mg PO DAILY 06/28/18 [History] Dicyclomine Hcl [Bentyl] 20 mg PO BID PRN 12/11/18 [History] Erenumab-Aooe [Aimovig Autoinjector] 120 mg SQ QMONTH 12/11/18 [History] Gabapentin 600 mg PO TID 12/11/18 [History] Multivitamin [Daily Multiple Vitamin] 1 tab PO DAILY 12/11/18 [History] Onabotulinumtoxina [Botox] 0 ml SQ [id number] 12/11/18 [History] OxyCODONE/APAP 7.5/325 [Percocet 7.5/325 MG] 1 tab PO Q6HR PRN 12/11/18 [History] Promethazine [Phenergan] 25 mg RC TID PRN 12/11/18 [History] Tizanidine HCl 2 mg PO Q8H PRN 12/11/18 [History] carBAMazepine [Carbamazepine ER] 100 mg PO BID 12/11/18 [History] Allergy/AdvReac Type Severity Reaction Status Date / Time ciprofloxacin [From Cipro] Allergy See Verified 12/11/18 19:17 Comments doxycycline Allergy Rash Verified 12/11/18 19:17 latex Allergy Anaphylaxis Verified 12/11/18 19:17 Penicillins Allergy Anaphylaxis Verified 12/11/18 19:17 sulfamethoxazole Allergy Headache Verified 12/11/18 19:17 [From Bactrim] trimethoprim [From Bactrim] Allergy Headache Verified 12/11/18 19:17 All Systems Review: The remainder of the systems were reviewed and are negative - Cardiovascular Cardiovascular: as per HPI Physical Examination Vital Signs, Last 4 Hours Temp Pulse Resp BP Pulse Ox 12/13/18 12:54 165/100 12/13/18 11:58 98.6 F 82 16 173/103 90 General: Conversant, No Apparent Distress HEENT: Atraumatic, Normocephaly, Mucus Membranes Moist Neck: No JVD, Normal carotid pulses Cardiac: Reg Rate and Rhythm, Normal S1 and S2, No Murmur Lungs: Normal Breath Sounds, No Wheeze, Rales, Rhonchi Neuro: Alert and responsive, No focal deficits noted Abdomen: Soft, Non-Tender Skin: No rashes noted on visualized skin Musculoskeletal: No Chest Wall Tenderness Extremities: No Clubbing, No Cyanosis, No Edema, Normal Pulses Results 12/12/18 02:18 12/12/18 02:18 Active Medications Aspirin (Aspirin) 81 mg PO DAILY [facility] Stop: 06/13/19 09:01 Last Admin: 12/13/18 10:53 Dose: 81 mg Documented by: Atorvastatin Calcium (Lipitor) 20 mg PO HS [facility] Stop: 06/12/19 21:01 Last Admin: 12/12/18 20:07 Dose: 20 mg Documented by: Budesonide/Formoterol Fumarate (Symbicort) 2 puff IH BIDR [facility]; Protocol Stop: 06/13/19 22:01 Last Admin: 12/13/18 07:44 Dose: 2 puff Documented by: Carbamazepine (Tegretol Xr) 100 mg PO BID [facility] Stop: 06/13/19 21:01 Last Admin: 12/13/18 10:54 Dose: 100 mg Documented by: Enoxaparin Sodium (Lovenox) 40 mg SQ 0700 [facility] Stop: 06/13/19 07:01 Last Admin: 12/13/18 06:02 Dose: 40 mg Documented by: Furosemide (Lasix) 20 mg PO DAILY [facility] Stop: 06/13/19 16:02 Last Admin: 12/13/18 10:53 Dose: 20 mg Documented by: Gabapentin (Neurontin) 600 mg PO TID [facility] Stop: 06/13/19 21:01 Last Admin: 12/13/18 10:53 Dose: 600 mg Documented by: Hydralazine HCl (Hydralazine) 10 mg IVP Q6HR PRN PRN Reason: Hypertension Stop: 06/12/19 18:47 Last Admin: 12/12/18 16:46 Dose: 10 mg Documented by: Labetalol HCl (Trandate) 100 mg PO BID [facility] Stop: 06/13/19 21:01 Last Admin: 12/13/18 10:53 Dose: 100 mg Documented by: Lisinopril (Zestril) 20 mg PO DAILY [facility] Stop: 06/13/19 15:59 Last Admin: 12/13/18 10:53 Dose: 20 mg Documented by: Multivitamins/Calcium (Thera M Plus) 1 tab PO DAILY [facility] Stop: 06/14/19 09:01 Last Admin: 12/13/18 10:53 Dose: 1 tab Documented by: Naloxone HCl (Narcan) 0.4 mg IVP Q2MPRN PRN PRN Reason: SEE COMMENTS Stop: 06/12/19 18:37 Nitroglycerin (Nitroglycerin) 0.4 mg SL Q5MPRN PRN PRN Reason: Chest Pain Stop: 06/12/19 18:50 Last Admin: 12/12/18 04:22 Dose: 0.4 mg Documented by: Ondansetron HCl (Zofran) 4 mg IVP Q8HR PRN PRN Reason: Nausea And Vomiting Stop: 06/12/19 18:37 Last Admin: 12/11/18 22:20 Dose: 4 mg Documented by: Oxycodone/Acetaminophen (Percocet 7.5/325) 1 each PO Q6HR PRN PRN Reason: Pain Stop: 06/12/19 18:47 Last Admin: 12/13/18 12:09 Dose: 1 each Documented by: Paroxetine HCl (Paxil) 20 mg PO HS [facility]; Protocol Stop: 06/13/19 21:01 Last Admin: 12/12/18 20:07 Dose: 20 mg Documented by: Tizanidine HCl (Zanaflex) 2 mg PO Q8H PRN PRN Reason: Muscle Spasm Zolpidem Tartrate (Ambien) 10 mg PO HS PRN; Protocol PRN Reason: Anxiety Stop: 06/13/19 15:55 Last Admin: 12/12/18 22:12 Dose: 10 mg Documented by: - Imaging and Cardiology Stress Test: report reviewed Echo: report reviewed - EKG Interpretation EKG results cardiology: personally reviewed Consult Discharge Plan - Plan Referrals: Hipolito Zapien MD [Partnered Physician] - (Appointment has been requested.) <Rachel Fernandez - Last Filed: 12/13/18 16:05> Date of Encounter: 12/13/18 - Attending Attestation I examined this patient and my medical decision-making was reviewed with the CARE PROVIDER. I agree with the documented findings, disposition and treatment plan as described. Ms. Lehman presents with atypical chest pain starting at nighttime persisting without resolution for 2 days, tender in the mid epigastrum on exam. Serial troponins negative. Normal LV systolic function. No acute ECG findings. Nuclear stress test images personally reviewed. Perfusion appears normal with breast artifact during stress. Normal Gated EF. Discussed these findings with the patient. Suspect a GI etiology based on presenting symptoms. Reports history of "reflux surgery". Will give GI cocktail. Recommend taking PPI on empty stomach. Recommend medical therapy and followup as outpatient. Should have GI workup as outpatient as well. Patient is in agreement with the plan. Follow up outpatient Cardiology. Assessment and Plan Discussion w patient/family: The assessment and plan as outlined above was discussed with the patient and/or family members who expressed understanding and agreement. All questions were answered. Thank you for involving us in the care of your patient. Please call with any questions. History of Present Illness History of present illness: Ms. Lehman is a 53 year old female All Systems Review: The remainder of the systems were reviewed and are negative Physical Examination Vital Signs, Last 4 Hours Temp Pulse Resp BP Pulse Ox 12/13/18 14:56 98.6 F 90 16 135/85 96 12/13/18 12:54 165/100 Results 12/12/18 02:18 12/12/18 02:18
[2018-12-13 15:04] VITALS: BP 135/85
[2018-12-13] MEDS ORDERED: GI Cocktail 40 ML EACH PO ONE (15:59)
--- NOTE | 2018-12-13 17:17 | Discharge Summary ---
- NOTES TO OUTPATIENT PROVIDER Notes to Outpatient Provider: She presented with chest pain signed onset underwent a cardiac stress test which showed an abnormal test mild anterior lateral perfusion defect reviewed by cardiology may be secondary to breast attenuation-[place] chest pain may be secondary to GI involvement recommending GI follow-up as well as PPI Orders not resulted at time of discharge: Pending orders 12/12/18 09:39 NM zeina perf SPECT multi [NM] Routine Date of Encounter: 12/13/18 Time of Encounter: 17:15 - Discharge Diagnosis (1) Chest pain Priority: Primary Status: Acute Qualifiers: Chest pain type: precordial pain Qualified Code(s): R07.2 - Precordial pain (2) Arnold-chiari syndrome with hydrocephalus Priority: Secondary Status: Chronic (3) Hyperlipemia Priority: Secondary Status: Chronic Qualifiers: Hyperlipidemia type: unspecified Qualified Code(s): E78.5 - Hyperlipidemia, unspecified (4) Hypertension Priority: Secondary Status: Acute Qualifiers: Hypertension type: essential hypertension Qualified Code(s): I10 - Essential (primary) hypertension Hospital course: Ms. Lehman is a 53 year old female Past medical history of hypertension hyperlipidemia obesity presented to the ED with complaints of sudden onset chest pain occurred at rest describing as stabbing and squeezing rates her back and into her neck pain lasted for several hours and resolved after administrating nitroglycerin in the ER. She did have elevated systolic blood pressure greater than 190 troponins were negative [address]-T wave abnormalities underwent cardiac stress test which did show a mild anterior lateral perfusion defect cardiology was consulted suspect secondary to breast attenuation. Suspect chest pain secondary to GI recommending GI cocktail and follow-up with GI and PPI. Patient has not had any more chest pain during this admission she has had a headache and elevated blood pressure however she did not take her medication due to being nothing by mouth. Blood pressure has returned to baseline once he resumed home medications. Advised patient to follow-up with primary care provider as well as GI as outpatient. Patient verbalized understanding currently ready for discharge. - Time Spent with Patient Total time spent providing and/or coordinating discharge services: - Discharge Medications Prescriptions: New Aspirin 81 mg PO DAILY #30 tab.chew Atorvastatin [Lipitor] 20 mg PO HS #30 tablet Omeprazole [PriLOSEC] 20 mg PO DAILY@0630 #30 capsule. Continued Zolpidem [Ambien] 10 mg PO HS PRN PRN Reason: Anxiety Paroxetine [Paxil] 20 mg PO HS Furosemide [Lasix] 20 mg PO DAILY Thyroid,Pork [[place] Thyroid] 90 mg PO DAILY Quinapril HCl [Accupril] 20 mg PO DAILY Labetalol [Trandate] 100 mg PO BID Ipratropium/Albuterol Neb [Duoneb] 2.5 mg IH DAILY PRN PRN Reason: shortness of breath Budesonide/Formoterol 80/4.5 [Symbicort 80/4.5] 2 inh IH BID carBAMazepine [Carbamazepine ER] 100 mg PO BID Dicyclomine Hcl [Bentyl] 20 mg PO BID PRN PRN Reason: ABDOMINAL PAIN Gabapentin 600 mg PO TID Multivitamin [Daily Multiple Vitamin] 1 tab PO DAILY OxyCODONE/APAP 7.5/325 [Percocet 7.5/325 MG] 1 tab PO Q6HR PRN PRN Reason: Pain Tizanidine HCl 2 mg PO Q8H PRN PRN Reason: Muscle Spasm Promethazine [Phenergan] 25 mg RC TID PRN PRN Reason: NAUSEA/VOMITING Onabotulinumtoxina [Botox] 0 ml SQ [id number] Erenumab-Aooe [Aimovig Autoinjector] 120 mg SQ QMONTH Home Medications: Furosemide [Lasix] 20 mg PO DAILY 10/08/15 [History] Paroxetine [Paxil] 20 mg PO HS 10/08/15 [History] Zolpidem [Ambien] 10 mg PO HS PRN 10/08/15 [History] Budesonide/Formoterol 80/4.5 [Symbicort 80/4.5] 2 inh IH BID 06/28/18 [History] Ipratropium/Albuterol Neb [Duoneb] 2.5 mg IH DAILY PRN 06/28/18 [History] Labetalol [Trandate] 100 mg PO BID 06/28/18 [History] Quinapril HCl [Accupril] 20 mg PO DAILY 06/28/18 [History] Thyroid,Pork [[place] Thyroid] 90 mg PO DAILY 06/28/18 [History] Dicyclomine Hcl [Bentyl] 20 mg PO BID PRN 12/11/18 [History] Erenumab-Aooe [Aimovig Autoinjector] 120 mg SQ QMONTH 12/11/18 [History] Gabapentin 600 mg PO TID 12/11/18 [History] Multivitamin [Daily Multiple Vitamin] 1 tab PO DAILY 12/11/18 [History] Onabotulinumtoxina [Botox] 0 ml SQ [id number] 12/11/18 [History] OxyCODONE/APAP 7.5/325 [Percocet 7.5/325 MG] 1 tab PO Q6HR PRN 12/11/18 [History] Promethazine [Phenergan] 25 mg RC TID PRN 12/11/18 [History] Tizanidine HCl 2 mg PO Q8H PRN 12/11/18 [History] carBAMazepine [Carbamazepine ER] 100 mg PO BID 12/11/18 [History] Aspirin 81 mg PO DAILY #30 tab.chew 12/13/18 [Rx] Atorvastatin [Lipitor] 20 mg PO HS #30 tablet 12/13/18 [Rx] Omeprazole [PriLOSEC] 20 mg PO DAILY@0630 #30 capsule. 12/13/18 [Rx] Allergies/Adverse Reactions: Allergy/AdvReac Type Severity Reaction Status Date / Time ciprofloxacin [From Cipro] Allergy See Verified 12/11/18 19:17 Comments doxycycline Allergy Rash Verified 12/11/18 19:17 latex Allergy Anaphylaxis Verified 12/11/18 19:17 Penicillins Allergy Anaphylaxis Verified 12/11/18 19:17 sulfamethoxazole Allergy Headache Verified 12/11/18 19:17 [From Bactrim] trimethoprim [From Bactrim] Allergy Headache Verified 12/11/18 19:17 Date of admission: 12/11/18 17:26 Primary care physician: PCP NONE Consults: 12/13/18 09:57 Consult to Cardiology [CONS] Routine Comment: Consulting Provider: Cardiology Pattie Reason for Consult: abnormal stress Time Notified: 09:58 Call Completed: Yes Discharging clinician: Arelis Deleon Anticipated date of discharge: 12/13/18 - Constitutional Vitals: Temp Pulse Resp BP Pulse Ox 98.6 F 90 16 135/85 96 12/13/18 14:56 12/13/18 14:56 12/13/18 14:56 12/13/18 14:56 12/13/18 14:56 General appearance: Present: A&O X 3 Exam: Skin: Free of rash and discoloration. Eyes: Sclera is white. There is no discharge from eyes. ENMT: Oral/pharyngeal mucosa is normal in appearance. There is no discharge from nose or ears. Respiratory: Normal breath sounds with no crackles and wheezes bilaterally. CV: Heart is regular with no gallop or murmur. GI: Abdomen is flat and soft with no palpable mass or visceromegaly. : There is no tenderness in patient's flanks bilaterally. Neuro exam: He has good strength in upper and lower extremities. He has normal eye movements. Psychiatric: He has normal affect. His thought process is appropriate to the situation. - Patient Status Disposition: Home, Self-Care Condition: Fair Functional capacity at discharge: independent ambulation Overall status at discharge: patient is back to baseline - Discharge Instructions Follow Up With: Lambert Paulino MD [Partnered Physician] - Hipolito Zapien MD [Partnered Physician] - (Appointment has been requested.) - Diet and Activity Activity: increase activity as tolerated Diet: low fat, low cholesterol, low salt diet
== END 2018-12-13 19:27 | disposition home or self-care (01) ==
LOC: 3BNU 14:48 → EMEROOARM 14:48 → 3BNU 18:56
PROVIDERS: ADMIT Internal Medicine Nephrology; ATTEND Internal Medicine Nephrology